=== PATIENT | female | born 1995 | race African-American/Black ===

== ENCOUNTER 2016-08-30 13:50 | Emergency (ER) | payer OTHER ==
[~2016-08-30] VITALS: Ht 157.5 cm
[2016-08-30 13:52] VITALS: BP 122/77; PULSE 74; RESP 15; TEMP 98.2; O2SAT 99
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
[2016-08-30] MEDS ORDERED: IBUP800T23 PO (14:42)
[2016-08-30] MEDS ORDERED: ROBA500T PO (14:42)
[2016-08-30] MEDS ORDERED: METHOCARBAMOL 500 MG TAB PO ONE (14:45)
[2016-08-30] MEDS ORDERED: IBUPROFEN 800 MG TAB PO ONE (14:45)
== END 2016-08-30 15:16 | disposition home or self-care (01) ==
LOC: NEPK 13:50
DX: S39.012A Strain of muscle, fascia and tendon of lower back, initial encounter (principal); R51 Headache; V49.40XA Driver injured in collision with unspecified motor vehicles in traffic accident, initial encounter
CPT/HCPCS: 99283